=== PATIENT | male | born 1960 | race Caucasian/White ===

== ENCOUNTER 2017-04-13 18:53 | Emergency (ER) | payer OTHER ==
[2017-04-13 19:11] VITALS: BP 129/80; PULSE 68; RESP 16; TEMP 97.9; O2SAT 95
--- NOTE | 2017-04-13 19:11 | EDPHY ---
H & P Time Seen by Provider: 04/13/17 18:59 HPI/ROS: HPI Right elbow injury. 56-year-old male by private vehicle. This patient reports that he had surgery for a right-sided tennis elbow injury several years ago. He reports that he has not had any issues with the elbow but this surgery and the recovery put him out of work for a prolonged period of time. He reports he has been back at work. 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 He reports that he was lifting someone from a gurney at work and had sudden onset sharp pain just medial to the lateral condyle of the right elbow. He reports that the pain is exacerbated some by flexion of the elbow and rotation of his wrist. No other complaint or injury. ROS: Constitutional: No fever, no chills. No weakness. Skin: No rashes. No lacerations or abrasions. Musculoskeletal: As above. Denies other extremity pain. Neurological: No headache. No focal weakness or altered sensation. Past medical history: As above. No other pertinent past medical history. Social history: Nonsmoker. No alcohol. Here by himself. Physical Exam: General Appearance: Alert, no distress. This patient is responding to questions appropriately and in full sentences. This patient appears well- hydrated and well-nourished. Eyes: Pupils equal and round no pallor or injection. No lid edema, erythema or injection. Right elbow examination: He has some mild tenderness on palpation just medial to the lateral condyle mid elbow. There is no associated swelling, erythema, warmth or ecchymosis noted to this area. There is no bony deformity or crepitus noted on palpation of the area. There is no pain elicited by axial compression of the wrist forearm elbow and arm. He does not have significant pain with flexion of the elbow or extension of the elbow actively and passively. He does not appear to have significant pain on pronation and supination of the right wrist. The right upper extremity is neurovascularly intact. Neurological: Motor sensory function is grossly intact. Cranial nerves are normal. Gait is normal. Skin: Warm and dry, no rashes. Musculoskeletal: As above Extremities are symmetrical. All joints range without pain or impingement except noted. Psychiatric: No agitation. No depression. Database: EKG: Imaging: Procedures: Emergency department course: Vital signs reviewed. At this time I do not feel the patient requires x-rays. I discussed management plan which will include high-dose ibuprofen for 2-3 days and then follow up with his primary care physician at [facility] for re-evaluation of his injury. He can be referred to an drug regulatory affairs specialist by his primary care physician at that time if required. He is in agreement with this plan. Return to emergency department precautions were discussed with him. All of his questions were answered. He was discharged in good condition. Differential Diagnosis: The differential diagnosis on this patient includes but is not limited to right elbow sprain, right elbow tendon strain. Fracture, subluxation, dislocation unlikely. This represents a partial list of diagnoses considered. These considerations are based on history, physical exam, past history, reassessment and diagnostic testing. Departure - Departure Disposition: Home, Routine, Self-Care Clinical Impression: Injury of elbow, right Condition: Good Instructions: Elbow Sprain (ED) Additional Instructions: Read and follow provided instructions. Follow-up with your primary care physician in 2-3 days for re-evaluation. Your primary care physician at [facility] can refer you to an drug regulatory affairs specialist as needed and can order advanced imaging if needed. Avoid any activity which causes you pain until cleared by primary care physician or an drug regulatory affairs specialist. Ibuprofen dosin mg every 6 hr with meals for the next 3 days only. Return to the emergency department for worsening pain, swelling, discoloration, loss of sensation, weakness or other serious concerns. Referrals: NONE *PRIMARY CARE P,. [Primary Care Provider] - As per Instructions Stand Alone Forms: Work Excuse
== END 2017-04-13 19:25 | disposition home or self-care (01) ==
LOC: CED 18:53
DX: S59.901A Unspecified injury of right elbow, initial encounter (principal); X50.0XXA Overexertion from strenuous movement or load, initial encounter; Y92.69 Other specified industrial and construction area as the place of occurrence of the external cause; Y99.0 Civilian activity done for income or pay; Y93.89 Activity, other specified

== ENCOUNTER 2017-08-19 17:36 | Emergency (ER) | payer OTHER ==
--- NOTE | 2017-08-19 19:23 | EDPHY ---
H & P Stated Complaint: HURT LOWER BACK LIFTING PT AT WORK 2 DAYS AGO - Personal History Current Tetanus Diphtheria and Acellular Pertussis (TDAP): Yes - Medical/Surgical History Hx Asthma: No Hx Chronic Respiratory Disease: No Hx Diabetes: Yes Hx Cardiac Disease: Yes Hx Renal Disease: No Hx Cirrhosis: No Hx Alcoholism: No Hx HIV/AIDS: No Hx Splenectomy or Spleen Trauma: No Other PMH: right elbow surgery. NH 2 stents. DM pre - Social History Smoking Status: Heavy smoker Time Seen by Provider: 08/19/17 18:15 HPI/ROS: Chief complaint: Low back pain History of present illness: This is a 57-year-old male who presents to the emergency department for low back pain. He reports he has had pain for the last 2 days. 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 Since then he has had persistent soreness. Worse with movement, better with rest. It does not radiate. There are no associated signs or symptoms including no paresthesias, no weakness or paralysis, no bowel or bladder dysfunction. No direct trauma. Review of systems: A 10 point review of systems was obtained and other than described was negative (Cam Coronel) - Physical Exam Exam: General Appearance: Alert, nontoxic. Eyes: Pupils equal and round no pallor or injection. ENT, Mouth: Mucous membranes moist. Respiratory: There are no retractions, lungs are clear to auscultation. Cardiovascular: Regular rate and rhythm. Gastrointestinal: Abdomen is soft and non tender, no masses, bowel sounds normal. Neurological: Alert and oriented x4. Strength and sensation intact and symmetrical. Skin: Warm and dry, no rashes. Musculoskeletal: There is diffuse tenderness across the lumbar paraspinal muscles and midline without specific point tenderness over the lumbar spine. No crepitus, bony deformity or step-off. The rest of the back is nontender. Psychiatric: Patient is oriented X 3, there is no agitation. (Cam Coronel) Constitutional: Initial Vital Signs Temperature (C) 36.4 C 08/19/17 17:56 Heart Rate 78 08/19/17 17:56 Respiratory Rate 16 08/19/17 17:56 Blood Pressure 128/90 H 08/19/17 17:56 O2 Sat (%) 95 08/19/17 17:56 O2 Delivery Mode Room Air Allergies/Adverse Reactions: No Known Allergies Allergy (Verified 08/19/17 17:55) Home Medications: Medication Instructions Recorded Allopurinol 04/13/17 CLONAZEPAM 04/13/17 Hydrochlorothiazide 04/13/17 LaMICtal 04/13/17 Lipitor 04/13/17 Metformin HCl 04/13/17 Metoprolol Succinate 04/13/17 Cyclobenzaprine [Flexeril 10 MG 10 mg PO TID PRN #15 tab 08/19/17 (*)] Medical Decision Making - Diagnostics Imaging: I viewed and interpreted images myself ED Course/Re-evaluation: Patient seen under the supervision of my secondary supervising physician Dr. Taylor Powers. Patient presents to the emergency department for low back pain for 2 days. This occurred after twisting his low back while moving an adult patient. He is nontoxic. Vital signs are stable. He has a nonfocal neurologic exam. L-spine x-rays are negative. Likely sprain/strain. Home care is discussed. He is asked to follow up with worker's compensation for recheck. Return precautions given. The patient voiced understanding and agreement with plan. (Cam Coronel) The patient was evaluated and managed by the physician customer care assistant. I have reviewed this chart and I agree with the findings and plan of care as documented , as indicated by my signature. I am the secondary supervising physician. ( Taylor Powers) Differential Diagnosis: Included but not limited to contusion, sprain or strain, herniated intervertebral disc unlikely bony fracture, cauda equina syndrome etc (Cam Coronel) - Data Points Medications Given: Discontinued Medications Hydrocodone Bitart/Acetaminophen ([place] 5/325mg Prepack#6) 1 btl TAKEHOME EDNOW ONE Stop: 08/19/17 19:46 Last Admin: 08/19/17 19:45 Dose: 1 btl Departure - Departure Disposition: Home, Routine, Self-Care Clinical Impression: Low back pain Qualifiers: Chronicity: acute Back pain laterality: bilateral Sciatica presence: without sciatica Qualified Code(s): M54.5 - Low back pain Condition: Good Instructions: Hydrocodone/Acetaminophen (By mouth), Low Back Strain (ED) Additional Instructions: Please follow-up with your primary care doctor or worker's compensation next week for recheck Use ibuprofen 600 mg 3 times a day for the next 2-3 days for pain control You can also use Flexeril as a muscle relaxant If symptoms worsen or new symptoms develop return to the emergency room for recheck Referrals: VIJAY VANEGAS [Other] - As per Instructions Stand Alone Forms: Work Excuse Prescriptions: Cyclobenzaprine [Flexeril 10 MG (*)] 10 mg PO TID PRN #15 tab PRN Reason: Spasms
[2017-08-19] MEDS ORDERED: HYDROCOD/APAP 5/325 PREPACK#6 BTL TAKEHOME ONE ×2 (19:43→19:45)
[2017-08-19 19:50] VITALS: BP 140/97
== END 2017-08-19 19:51 | disposition home or self-care (01) ==
DX: M54.5 Low back pain (principal); E11.9 Type 2 diabetes mellitus without complications; I25.2 Old myocardial infarction; F17.200 Nicotine dependence, unspecified, uncomplicated; Z79.84 Long term (current) use of oral hypoglycemic drugs